=== PATIENT | male | born 1975 | race Caucasian/White ===

== ENCOUNTER 2017-10-02 10:25 | Emergency (ER) | payer OTHER ==
[2017-10-02 10:30] VITALS: BP 179/81; PULSE 72; RESP 16; TEMP 98
--- NOTE | 2017-10-02 10:50 | XR ---
EXAMINATION TYPE: XR forearm LT DATE OF EXAM: 10/02/2017 CLINICAL HISTORY: Contusion injury with swelling. TECHNIQUE: Two views of the left forearm are obtained. COMPARISON: None. FINDINGS: There is no acute fracture or dislocation seen in the left radius or ulna. The left elbow and wrist joints appear within normal limits. There is moderate focal subcutaneous edema along dorsa l surface proximal ulnar level seen on lateral view. IMPRESSION: There is no acute fracture or dislocation seen in the left radius or ulna.
--- NOTE | 2017-10-02 11:06 | ED ---
General Adult HPI - General Chief complaint: Extremity Injury, Upper Stated complaint: left arm injury Time Seen by Provider: 10/02/17 10:49 Source: patient, RN notes reviewed Mode of arrival: ambulatory Limitations: no limitations - History of Present Illness Initial comments: Patient 41-year-old male presenting to the emergency room today with a chief complaint of a fall and contusion to the back of the left forearm. Patient states that he fell back hitting a branch. Patient admits to pain locally to the area and does have some swelling. He denies any loss conscious. Denies any other complaints or symptoms. Patient denies any recent fever, chills, shortness of breath, chest pain, back pain, abdominal pain, nausea or vomiting, numbness or tingling, dysuria or hematuria, constipation or diarrhea, headaches or visual changes, or any other complaints. - Related Data Home Medications Medication Instructions Recorded Confirmed No Known Home Medications [No 10/02/17 10/02/17 Known Home Medications] Allergies Allergy/AdvReac Type Severity Reaction Status Date / Time beeswax Allergy Anaphylaxis Verified 10/02/17 10:54 Penicillins Allergy Anaphylaxis Verified 10/02/17 10:54 Review of Systems ROS Statement: Those systems with pertinent positive or pertinent negative responses have been documented in the HPI. ROS Other: All systems not noted in ROS Statement are negative. Past Medical History Past Medical History: No Reported History History of Any Multi-Drug Resistant Organisms: None Reported Past Surgical History: No Surgical Hx Reported Past Psychological History: No Psychological Hx Reported Smoking Status: Never smoker Past Alcohol Use History: None Reported Past Drug Use History: None Reported General Exam - General Exam Comments Initial Comments: General: The patient is awake and alert, in no distress, and does not appear acutely ill. Neck: The neck is supple, there is no tenderness or JVD. Musculoskeletal: Patient does have contusion to the back of the left forearm. Patient has no tenderness to left shoulder, left elbow, down to the left wrist or hand. Cap refill less than 2 seconds. Sensation intact. Radial pulses plus. Neurological: A&O x 3. CN II-XII intact, There are no obvious motor or sensory deficits. Coordination appears grossly intact. Speech is normal. Skin: Skin is warm and dry and no rashes or lesions are noted. Psychiatric: Normal mood and affect. Limitations: no limitations Course Vital Signs 10/02/17 10:26 Temperature 98.0 F Pulse Rate 72 Respiratory 16 Rate Blood Pressure 179/81 O2 Sat by Pulse 98 Oximetry Medical Decision Making - Medical Decision Making X-rays reviewed are negative for any acute fracture dislocation. Results were discussed with patient. Patient will be discharged home advised to ice elevate the area and follow-up in 7-10 days for repeat x-rays. Disposition Clinical Impression: Forearm contusion Disposition: HOME SELF-CARE Condition: Good Instructions: Contusion in Adults (ED) Additional Instructions: Please continue to ice elevate the affected area. Please use ibuprofen for pain. Please return to emergency room for any other concerns. Is patient prescribed a controlled substance at d/c from ED?: No Referrals: Josselin Ceja MD [Primary Care Provider] - 1-2 days Time of Disposition: 11:05
== END 2017-10-02 11:15 | disposition home or self-care (01) ==
LOC: EC 10:25
DX: S50.12XA Contusion of left forearm, initial encounter (principal); Z88.0 Allergy status to penicillin; Z91.048 Other nonmedicinal substance allergy status; W01.198A Fall on same level from slipping, tripping and stumbling with subsequent striking against other object, initial encounter
CPT/HCPCS: 99283

== ENCOUNTER → 2018-05-06 | Outpatient (CLI) | payer OTHER ==
--- NOTE | 2018-05-06 15:30 | XR ---
EXAMINATION TYPE: XR chest 2V DATE OF EXAM: 05/06/2018 COMPARISON: None INDICATION: Chest wall pain TECHNIQUE: Frontal and lateral views of the chest are obtained. FINDINGS: The heart size is normal. The pulmonary vasculature is normal. The lungs are clear. Osseous structures appear intact. No pneumothorax is evident. IMPRESSION: 1. No acute pulmonary process.
== END | disposition home or self-care (01) ==
LOC: RADXRMAIN 15:10
PROVIDERS: ATTEND Family Medicine
DX: R07.89 Other chest pain (principal); R06.00 Dyspnea, unspecified
CPT/HCPCS: 71046

== ENCOUNTER → 2021-11-10 | Outpatient (CLI) | payer BC ==
[2021-11-10 14:25] LABS: Basophils # (A) 0.06 X 10*3/uL (0.00-0.10); Basophils % (A) 0.9 %; Eosinophils # (A) 0.12 X 10*3/uL (0.04-0.35); Eosinophils % (A) 1.9 %; HCT 44.3 % (39.6-50.0); HGB 14.6 g/dL (13.0-17.0); Immature Grans, Automated 0.3 %; Lymphocytes # (A) 1.99 X 10*3/uL (0.90-5.00); Lymphocytes % (A) 31.2 %; MCV 88.1 fL (80.0-97.0); Mean Platelet Volume 10.6 fL (9.5-12.2); Monocytes # (A) 0.67 X 10*3/uL (0.20-1.00); Monocytes % (A) 10.5 %; NRBC Per 100 WBC 0 /100 WBCS (0.0-0.0); Neutrophils # (A) 3.51 X 10*3/uL (1.80-7.70); Neutrophils % (A) 55.2 %; Platelet Count 250 X 10*3/uL (140-440); RBC 5.03 X 10*6/uL (4.40-5.60); WBC 6.37 X 10*3/uL (4.50-10.00)
[2021-11-10 15:16] LABS: ALT 20 U/L (10-49); AST 20 U/L (14-35); African American GFR (CKD) 103.4 (60.0-200.0); Albumin 4.3 g/dL (3.8-4.9); Albumin/Globulin Ratio 1.65 (1.60-3.17); Alkaline Phosphatase 103 U/L (41-126); Blood Urea Nitrogen 12.3 mg/dL (9.0-27.0); Calcium 9.2 mg/dL (8.7-10.3); Carbon Dioxide 26.1 mmol/L (20.0-27.5); Chloride 105 mmol/L (96-109); Chol/HDL Ratio 5.71 Ratio; Globulin 2.6 g/dL (1.6-3.3); Glucose 97 mg/dL (70-110); LDL Cholesterol,Calculated 166.4 mg/dL (0.0-131.0); Non-African American GFR(CKD) 89.2 (60.0-200.0); Potassium 4.6 mmol/L (3.5-5.5); Sodium 140 mmol/L (135-145); Total Protein 6.9 g/dL (6.2-8.2)
== END | disposition home or self-care (01) ==
LOC: LABWHC1 09:39
PROVIDERS: ATTEND Internal Medicine
DX: R03.0 Elevated blood-pressure reading, without diagnosis of hypertension (principal)
CPT/HCPCS: 36415; 80053; 80061; 84443; 85025

== ENCOUNTER → 2022-11-09 | Outpatient (CLI) | payer BC ==
[2022-11-09 16:11] LABS: ALT 30 U/L (10-49); AST 26 U/L (14-35); Albumin 4.1 d/dL (3.8-4.9); Albumin/Globulin Ratio 1.58 Ratio (1.60-3.17); Alkaline Phosphatase 94 U/L (41-126); BUN/Creat Ratio 16.67 Ratio (12.00-20.00); Calcium 9.1 mg/dL (8.7-10.3); Carbon Dioxide 24.5 mmol/L (21.6-31.8); Chloride 105 mmol/L (96-109); Chol/HDL Ratio 4.32 Ratio; Globulin 2.6 d/dL (1.6-3.3); Glucose 101 mg/dL (70-110); LDL Cholesterol,Calculated 156.5 mg/dL (0.0-131.0); Potassium 4.9 mmol/L (3.5-5.5); Sodium 140 mmol/L (135-145); T4, Free (Free Thyroxine) 1.13 ng/dL (0.80-1.80); Total Bilirubin 0.7 mg/dL (0.3-1.2); Total Protein 6.7 d/dL (6.2-8.2); VLDL Calculation 13.38 mg/dL (5.00-40.00)
[2022-11-09 16:24] LABS: Basophils # (A) 0.06 X 10*3/uL (0.00-0.10); Basophils % (A) 0.8 %; Eosinophils # (A) 0.12 X 10*3/uL (0.04-0.35); Eosinophils % (A) 1.6 %; HCT 47.2 % (39.6-50.0); HGB 15.5 d/dL (12.0-15.0); Lymphocytes % (A) 27.2 %; MCH 29.8 pg (27.0-32.0); MCHC 32.8 d/dL (32.0-37.0); MCV 90.8 FL (80.0-97.0); Mean Platelet Volume 11.5 FL (9.5-12.2); Monocytes # (A) 0.88 X 10*3/uL (0.20-1.00); NRBC Per 100 WBC 0 X 10*3/uL (0.00-0.01); Neutrophils # (A) 4.26 X 10*3/uL (1.80-7.70); Neutrophils % (A) 58.1 %; Platelet Count 237 X 10*3/uL (140-440); RBC Morphology Normal (Normal); RDW 13.2 % (11.5-14.5); WBC 7.34 X 10*3/uL (4.50-10.00)
== END | disposition home or self-care (01) ==
LOC: LABWHC1 08:18
PROVIDERS: ATTEND Internal Medicine
DX: E78.5 Hyperlipidemia, unspecified (principal)
CPT/HCPCS: 36415; 80053; 80061; 84439; 84443; 85025

== ENCOUNTER → 2022-11-23 | Outpatient (CLI) | payer BC ==
--- NOTE | 2022-11-23 12:03 | XR ---
EXAMINATION TYPE: XR knee 4V RT DATE OF EXAM: 11/23/2022 COMPARISON: None HISTORY: Pain TECHNIQUE: 4 view right knee FINDINGS: Joint spaces are preserved. No joint effusion is evident. No acute fracture or dislocation is evident. Follow up exams can be performed as clinically indicated. MRI can be performed for evaluation of soft tissues as clinically indicated. IMPRESSION: 1. No acute osseous abnormality 4 view right knee
--- NOTE | 2022-11-23 12:05 | XR ---
EXAMINATION TYPE: XR shoulder complete RT DATE OF EXAM: 11/23/2022 COMPARISON: NONE HISTORY: Pain TECHNIQUE: Shoulder examined in 3 projections. FINDINGS: The humeral head articulates with the glenoid. The acromio-clavicular junction is normal. No acute fractures or dislocations are evident. A follow up study can be performed 7-10 days from acute trauma for continued pain. MRI can be perfor med if soft tissue evaluation would be of benefit. IMPRESSION: 1. No acute osseous shoulder abnormality.
== END | disposition home or self-care (01) ==
LOC: RADXRMAIN 10:37
PROVIDERS: ATTEND Internal Medicine
DX: M25.561 Pain in right knee (principal); M25.511 Pain in right shoulder

== ENCOUNTER → 2023-11-15 | Outpatient (CLI) | payer BC ==
[2023-11-15 15:33] LABS: Basophils # (A) 0.04 X 10*3/uL (0.00-0.10); Basophils % (A) 0.7 %; Eosinophils # (A) 0.11 X 10*3/uL (0.04-0.35); Eosinophils % (A) 1.8 %; HCT 44.9 % (39.6-50.0); HGB 14.5 g/dL (13.0-17.0); Lymphocytes # (A) 1.82 X 10*3/uL (0.90-5.00); Lymphocytes % (A) 29.7 %; MCH 29.7 pg (27.0-32.0); MCHC 32.3 g/dL (32.0-37.0); MCV 91.8 FL (80.0-97.0); Mean Platelet Volume 11.4 FL (9.5-12.2); Monocytes # (A) 0.72 X 10*3/uL (0.20-1.00); Monocytes % (A) 11.7 %; NRBC Per 100 WBC 0 X 10*3/uL (0.00-0.01); Neutrophils # (A) 3.43 X 10*3/uL (1.80-7.70); Neutrophils % (A) 55.9 %; Platelet Count 233 X 10*3/uL (140-440); RBC 4.89 X 10*6/uL (4.40-5.60); RDW 13.2 % (11.5-14.5); WBC 6.13 X 10*3/uL (4.50-10.00)
[2023-11-15 15:45] LABS: ALT 21 U/L (10-49); AST 17 U/L (14-35); Albumin 4.4 g/dL (3.8-4.9); Albumin/Globulin Ratio 1.76 Ratio (1.60-3.17); Alkaline Phosphatase 83 U/L (41-126); BUN/Creat Ratio 13.11 Ratio (12.00-20.00); Blood Urea Nitrogen 11.8 mg/dL (9.0-27.0); Calcium 9.1 mg/dL (8.7-10.3); Chloride 106 mmol/L (96-109); Globulin 2.5 g/dL (1.6-3.3); Glucose 105 mg/dL (70-110); LDL Cholesterol,Calculated 158.1 mg/dL (0.0-131.0); Potassium 4.7 mmol/L (3.5-5.5); Sodium 141 mmol/L (135-145); Total Bilirubin 0.5 mg/dL (0.3-1.2); Total Protein 6.9 g/dL (6.2-8.2); VLDL Calculation 15.08 mg/dL (5.00-40.00)
== END | disposition home or self-care (01) ==
LOC: LABWHC1 08:17
PROVIDERS: ATTEND Internal Medicine
DX: Z00.00 Encounter for general adult medical examination without abnormal findings (principal); Z12.5 Encounter for screening for malignant neoplasm of prostate; Z11.59 Encounter for screening for other viral diseases
CPT/HCPCS: 86803; 80061; 80053; 84443; 85025; 36415; G0103